=== PATIENT | female | born 1970 | race Caucasian/White ===

== ENCOUNTER → 2016-12-19 | Outpatient (CLI) | payer OTHER ==
--- NOTE | 2016-12-19 16:21 | KCIC ---
PROCEDURE MRI of the lumbar spine without contrast 12/19/2016 HISTORY Low back pain with bilateral leg numbness and pain intermittently. TECHNIQUE Unenhanced T1 weighted, T2 weighted and inversion recovery sagittal and T1 weighted and T2 weighted axial images of the lumbar spine were obtained. FINDINGS Comparison study is dated 03/28/2016. Minimal S-shaped curvature of the thoracolumbar spine is seen. Degenerative signal changes are seen involving all of the discs of the lumbar spine. Degenerative signal changes are seen within the marrow surrounding these discs. A 1 centimeter hemangioma is seen involving the L2 vertebral body. The conus medullaris is normal in morphology, position, and signal characteristics. At the T12-L1 disc space there is a minimal generalized disc bulge. Superimposed on this disc bulge is a central/left paracentral focal disc protrusion. This measures 3 millimeters in AP diameter. These findings do not result in significant central spinal canal or neural foraminal stenosis. At the L1-2 disc space there is minimal generalized disc bulge. Degenerative changes are seen involving the facet joints bilaterally. These findings when combined do not result in significant central spinal canal or neural foraminal stenosis. At the L2-3 disc space there is a mild generalized disc bulge. Degenerative changes are seen involving the facet joints bilaterally. There is mild ligamentum flavum hypertrophy bilaterally. These findings when combined do not result in significant central spinal canal or neural foraminal stenosis. At the L3-4 disc space there is a mild to moderate generalized disc bulge. This is slightly eccentric to the left. Superimposed on this disc bulge is a left paracentral focal disc protrusion. This measures 2.5 millimeters in AP diameter. Degenerative changes are seen involving the facet joints bilaterally. There is mild ligamentum flavum hypertrophy bilaterally. There is prominence of the posterior epidural fat. These findings when combined result in mild left greater than right central spinal canal stenosis. No neural foraminal stenosis is seen. At the L4-5 disc space there is a mild to moderate generalized disc bulge. This is eccentric to the right. Degenerative changes are seen involving the facet joints bilaterally. There is mild ligamentum flavum hypertrophy bilaterally. These findings when combined result in mild central spinal canal stenosis. No neural foraminal stenosis is seen. At the L5-S1 disc space there is a mild generalized disc bulge. Superimposed on this disc bulge is a focal central disc protrusion. This measures 3 millimeters in AP diameter. Degenerative changes are seen involving facet joints bilaterally. There is mild ligamentum flavum hypertrophy bilaterally. These findings when combined do not result in significant central spinal canal or neural foraminal stenosis. Since the previous examination there has been no significant interval change. IMPRESSION The changes of degenerative disc disease are seen throughout the lumbar spine. These findings result in mild left greater than right central spinal canal stenosis at L3-4 and mild central spinal canal stenosis at L4-5. No neural foraminal stenosis is seen. Electronically signed by: Natanael Womack MD (December 19, 2016 16:20:40)
== END | disposition home or self-care (01) ==
LOC: KCIC MRI 15:26
PROVIDERS: ATTEND Internal Medicine
DX: M47.816 Spondylosis without myelopathy or radiculopathy, lumbar region (principal); M48.06 Spinal stenosis, lumbar region; R20.0 Anesthesia of skin
CPT/HCPCS: 72148

== ENCOUNTER → 2017-01-15 | Outpatient (CLI) | payer OTHER ==
[~2017-01-15] MED LIST: ACET325T9 PO; ACET500C PO; IMIP50TA3 PO; IOHEXOL 180 MG/ML 10 ML VIAL. ONE; METO100T11 PO; NAPR220T70 PO; PREG150C PO; methylPREDNISolone ACETATE 40 MG/ML VIAL. ONE; methylPREDNISolone ACETATE 80 MG/ML VIAL. ONE
--- NOTE | 2017-01-16 02:28 | PAIN ---
DATE OF SERVICE: 01/15/2017 INITIAL CONSULTATION CHIEF COMPLAINT: Low back and bilateral lower extremity pain, left greater than right. HISTORY OF PRESENT ILLNESS: This is a 46-year-old female who presents with history of pain in the low back and left lower extremity greater than right lower extremity for about 20 years. 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 The patient reports that since that time she has been with [employer] until 2004 and is currently with the [employer]. The patient reports that the pain is increasing in low back over the past few months, it has been bad for the past 6 years and constant, sharp, stabbing, throbbing, shooting as well with constant pain and tingling and numbness radiating to the lower extremities and burning as well. The patient reports it has been worse in the left leg over the last few months with numbness in the feet and tingling, especially on the left side with posterior gluteus, posterior thigh, posterior calf and foot, lateral anterior thigh as well as the lateral and anterior lower leg on the left and anterior thigh and posterior thigh on the right. The patient did have a myelogram of the lumbar spine yesterday; the results showing a broad-based right paracentral disk protrusion at L4-L5, causing mild right lateral recess narrowing and right-sided neural foraminal stenosis, [id number] sized central disk protrusion at L1-L2 without stenosis, left-sided hypertrophic facet arthrosis at L5-S1 with intraspinal spurring causing effacement of the posterior lateral aspect of the thecal sac within the lateral recess and medial displacement of the left S1 nerve root. The patient reports it awakens her from sleep at least 5-8 times during the night. She is unable to get much sleep because of the pain, especially when she is lying on her left side. She reports that it does affect her bowel and bladder control to some extent. She has some urgency, but no loss of continence. The patient reports it does affect her ability to walk significantly. She is not using any assistive devices currently, but she is walking with a significant limp, favoring the left lower extremity. In the past, the patient has had epidural injections, physical therapy, chiropractic treatment as well as exercise with only very temporary relief with any of these modalities in the past. The patient has tried Lyrica, Percocet, tramadol, hydrocodone, all of which are only minimally helpful if any at all in relieving the pain. The patient reports her disability rating from 0 to 10, 10 being the worst, is a 9 with family home responsibilities, 10 with recreation and social activity and sexual behavior, 8 with occupation, 7 with self-care and 5 with life support activities. PAST MEDICAL HISTORY: Significant for arthritis, hypertension, cigarette smoking, anxiety, depression, pseudotumor cerebri. PAST SURGICAL HISTORY: Previous surgeries include partial hysterectomy in 2004 and left benign breast biopsy and lumpectomy. CURRENT MEDICATIONS: Include Tylenol, Aleve, acetazolamide, metoprolol, Lyrica and imipramine. ALLERGIES: The patient has no known drug allergies. FAMILY HISTORY: Significant for no major medical problems or conditions that she is aware of. SOCIAL HISTORY: The patient drinks 1-2 alcoholic drinks a week on average, smokes less than a pack of cigarettes for the past 30 years, continues to smoke. The patient reports she lives locally in [place], [place], has 2 adult children at home and 1 grandchild and works for the [employer] service. REVIEW OF SYSTEMS: The patient's review of systems is positive for those items mentioned in the history of present illness. All systems reviewed and otherwise negative. It is complete, full and well documented on the patient's chart. PHYSICAL EXAMINATION: VITAL SIGNS: The patient's blood pressure is 181/119, pulse is 80, respirations 20, temperature 98.4 degrees Fahrenheit. Height is 5 feet 5 inches, weight is 202 pounds. GENERAL: The patient is awake, alert, oriented, appropriate, very pleasant demeanor. HEENT: Shows normocephalic and atraumatic. Extraocular movements are intact and symmetrical. Oral cavity shows mucous membranes are moist and pink. Dentition is intact. NECK: Shows anterior throat supple without palpable lymphadenopathy noted. Swallow reflex is symmetrical. CHEST: Shows normal on inspection. Breath sounds are clear to auscultation bilaterally. HEART: Shows S1 and S2 clear. ABDOMEN: Soft, nontender, nondistended. No palpable organomegaly is noted. No new rebound or guarding demonstrated. BACK: Shows spine grossly in the midline, normal-appearing cervical lordotic curvature, thoracic kyphotic curvature, and lumbar lordotic curvature. No previous bruises, lesions, rashes or scars are noted. The patient's lumbar paraspinous musculature shows symmetrical on inspection with normal muscle girth on palpation, but with moderate tenderness throughout the upper, middle and lower distribution of the paraspinous muscles bilaterally, but again without asymmetry and only diffusely in the paraspinous musculature. The patient shows no tenderness over the spinous processes over the sacrum and the sacroiliac regions with palpation. The patient does show good rotational motion of the lumbar spine, both laterally greater than 10 degrees right and left as well as extension greater than 10 degrees, forward flexion 45 degrees without difficulty. EXTREMITIES: The patient's lower extremities showed deep tendon reflexes at 2+ in the patella and 1+ tendo calcaneus tendons, are symmetrical. Motor exam is strong with 5/5 dorsiflexion, extension, quadriceps and hamstring flexion. Peripheral pulses are 1+ posterior tibial and dorsalis pedis pulses. No peripheral edema is noted. No clubbing, no cyanosis. Lower extremities are warm and dry to touch, equal in color and appearance. Straight leg raise noted to be positive on the left at approximately 40 degrees or so, which decreased with knee flexion, right side is negative. Gaenslen's and Francis's maneuvers are negative for reproduction of pain bilaterally as well. The patient is able to stand but is slow getting from a sitting to a standing position and is favoring her left lower extremity significantly with a limp when she is ambulating without using any assistive devices. IMPRESSION: 1. This is a 46-year-old female with long history of low back and bilateral lower extremity pain, worse over the past 3-4 months in a radicular fashion. 2. Lumbar myelogram as noted. 3. Arthritis. 4. Hypertension. PLAN: Options were discussed with the patient including conservative medical management, physical therapy, interventional techniques. She would like to pursue interventional techniques. We discussed a lumbar epidural steroid injection using description as well as anatomical models to describe the procedure. Risks were then discussed including but not limited to bleeding, infection, possibility of epidural hematoma, subsequent neurologic compromise, dural puncture, headaches, spinal cord and/or nerve damage, side effects of steroid medication and poor results regarding pain control. The patient understands and wishes to proceed. The patient will return to the clinic in approximately 2 weeks for followup. She was counseled as to return appointment, activity level and side effects to be aware of. DIAGNOSES: Lumbar radiculopathy with lumbar degenerative disk disease and lumbar herniated disk. PROCEDURES: Lumbar epidural steroid injection in translaminar approach at the L5-S1 level using C-arm fluoroscopic guidance under sterile prep and drape using local anesthetic. MEDICATION INJECTED: Depo-Medrol 120 mg plus 10 mL of preservative-free normal saline and 2 mL of Isovue for contrast. CONDITION AT DISCHARGE: Stable. The patient tolerated the procedure well, had no complications. The patient was counseled as to activity level as well as side effects to be aware of. Also, discussed her blood pressure, which was fairly elevated today, did come down some after the procedure; however, will have her follow up with her primary care physician regarding this as well. BARTOLO THAO MD DR: DESIREE/susy JOB#: [id number] / [id number]
== END | disposition home or self-care (01) ==
LOC: PNCL 13:03
PROVIDERS: ATTEND Anesthesiology
DX: M51.16 Intervertebral disc disorders with radiculopathy, lumbar region (principal); M19.90 Unspecified osteoarthritis, unspecified site; I10 Essential (primary) hypertension; F17.210 Nicotine dependence, cigarettes, uncomplicated; F41.9 Anxiety disorder, unspecified; F32.9 Major depressive disorder, single episode, unspecified; Z90.710 Acquired absence of both cervix and uterus; Z72.89 Other problems related to lifestyle
CPT/HCPCS: 62323; J1030; J1040

== ENCOUNTER → 2017-01-29 | Outpatient (CLI) | payer OTHER | END | disposition home or self-care (01) | LOC: PNCL 08:03 | PROVIDERS: ATTEND Anesthesiology | DX: M51.16 Intervertebral disc disorders with radiculopathy, lumbar region (principal) | CPT/HCPCS: 62323; J1030; J1040 ==

== ENCOUNTER → 2017-02-12 | Outpatient (CLI) | payer OTHER | END | disposition home or self-care (01) | LOC: PNCL 08:01 | PROVIDERS: ATTEND Anesthesiology | DX: M51.16 Intervertebral disc disorders with radiculopathy, lumbar region (principal) | CPT/HCPCS: 62323; J1030; J1040 ==